=== PATIENT | male | born 1945 | race Caucasian/White ===

== ENCOUNTER 2022-06-26 09:48 | Outpatient (CLI) | payer MEDICARE, SELFPAY ==
--- NOTE | ~2022-06-26 | MR_ITS ---
EXAMINATION: MR lumbar spine wo/w con DATE: 06/26/2022 10:56 INDICATION: Back pain. TECHNIQUE: Magnetic resonance imaging (MRI) of the lumbar spine was performed without and with 15 mL MultiHance intravenous contrast. COMPARISON: None FINDINGS: There is 10 degrees dextroscoliosis of thoracolumbar spine and 7 degrees levocurvature of l umbar spine. There is 3 mm retrolisthesis of L3 on L4. There is hypolordosis of lumbar spine. There a re Schmorl's nodes at most levels. There is severely decreased disc height at L3-L4, mildly decreased disc height at L4-L5, and severely decreased disc height at L5-S1 with endplate remodeling. The dist al spinal cord signal intensity is normal. The conus medullaris is at L1. The following disc levels a re specifically discussed: L1-L2: The disc is bulging. There is moderate bilateral facet joint osteoarthritis. There is mild lef t neural foraminal stenosis. There is mild central canal stenosis. L2-L3: The disc is bulging and has an annular fissure. There is severe bilateral facet joint osteoart hritis. There is mild bilateral neural foraminal stenosis. There is mild central canal stenosis. L3-L4: The disc is bulging and has an annular fissure. There is severe bilateral facet joint osteoart hritis. There is moderate right and mild left neural foraminal stenosis. There is mild central canal stenosis. L4-L5: The disc is bulging and has an annular fissure. There is severe bilateral facet joint osteoart hritis. There is mild right and moderate left neural foraminal stenosis. There is severe central mckayla l stenosis. L5-S1: The disc is bulging and has an annular fissure. There is severe bilateral facet joint osteoart hritis. There is mild left neural foraminal stenosis. There is mild central canal stenosis. IMPRESSION: 1. Severe lumbar spondylosis. 2. Scoliosis. Reviewed, dictated and finalized at location A.
== END 2022-06-26 09:49 | disposition home or self-care (01) ==
PROVIDERS: PCP Internal Medicine; Visit Provider Neurological Surgery
DX: M47.816 Spondylosis without myelopathy or radiculopathy, lumbar region (principal); M41.86 Other forms of scoliosis, lumbar region
CPT/HCPCS: 72158; A9577

== ENCOUNTER 2024-12-17 06:22 | Emergency (ER) | payer MEDICARE, SELFPAY ==
[2024-12-17] VITALS (15 sets, daily range): BP systolic 101–125; BP diastolic 51–60; PULSE 55–66; RESP 13–19; TEMP 36.4–36.6; O2SAT 97–100
--- NOTE | 2024-12-17 06:32 | ECG_ITS ---
Test Date: 2024-12-17 06:48:01 Measurements Intervals [place] Rate: 54 P: 59 AR: 227 QRS: -69 QRSD: 174 T: 47 QT: 465 QTc: 444 Interpretive Statements SINUS BRADYCARDIA WITH FIRST DEGREE AV BLOCK RIGHT BUNDLE BRANCH BLOCK LEFT ANTERIOR FASCICULAR BLOCK CANNOT R/O SEPTAL INFARCT, AGE INDETERMINATE BASELINE ARTIFACT- I, II, III, AVR, AVL, AVF, V1-V6 ABNORMAL ECG No previous ECG available for comparison Electronically Signed On 12-17-2024 06:52:02 CDT by Chadwick Post D.O.
[2024-12-17 06:48] LABS: Basophils Percent Auto 0.2 % (0.2-1.2); Eosinophils Percent Auto 0.5 % (0-4.4); Hematocrit 40.6 % (42.0-52.0); Hemoglobin 13.8 g/dL (14.0-18.0); Immature Granulocyte Absolute 0.02 K/mm3 (0.00-0.031); Immature Granulocyte Percent A 0.4 % (0-0.5); Immature Platelet Fraction Pct 1.8 % (0.9-11.2); Lymphocytes Absolute Auto 0.17 K/mm3 (0.9-3.2); Mean Corpuscular Hemoglobin 32.4 pg (26-34); Mean Corpuscular Volume 95.3 fl (80-100); Mean Platelet Volume 8.7 fl (7.4-10.4); Monocytes Absolute Auto 0.5 K/mm3 (0.1-0.6); Monocytes Percent Auto 9.3 % (2.6-8.5); Neutrophils Absolute Auto 4.9 K/mm3 (1.3-6.7); Neutrophils Percent Auto 86.6 % (45.5-73.1); Platelet Count Result 144 k/mm3 (150-375); Red Blood Count 4.26 M/mm3 (4.6-6.20); Red Cell Distribution Width 13.2 % (11.5-14.5); White Blood Count 5.7 K/mm3 (4.5-10.0)
[2024-12-17 07:02] LABS: Alanine Aminotransferase 21 U/L (6-50); Albumin Level 4.5 g/dL (3.5-5.1); Alkaline Phosphatase 79 U/L (38-126); Anion Gap 8 mmol/L (4-12); Aspartate Amino Transferase 27 U/L (17-59); Bilirubin,Total 0.6 mg/dL (0.2-1.3); Blood Urea Nitrogen 17 mg/dL (9-20); Calcium 8.8 mg/dL (8.4-10.2); Carbon Dioxide 26 mmol/L (22-30); Chloride 92 mmol/L (98-107); Estimated CRCL calculation 61 ml/min; Estimated Glomerular Filt Rate > 60; Glucose 136 mg/dL (65-110); Lipase 92 U/L (23-300); Potassium 4.5 mmol/L (3.4-5.0); Sodium 126 mmol/L (137-145)
[2024-12-17] MEDS: SODIUM CHLORIDE 0.9% IV 1,000 ML 999 ML IV CONT (07:31)
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
--- OUTSIDE RECORDS SUMMARY | 2024-12-17 07:43 | XMS_ITS | Clinical Summary ---
Author Organization [facility] Address [address] [facility] [place] [address] Phone Care Team Providers Care Associate Professor Of Communication Name Role Phone Michael López MD Primary Care Provider [phone] Allergies Active Allergy Reactions Criticality Noted Date Comments Phenytoin Rash Medium 04/16/2010 Phenytoin Sodium Extended Rash Low 01/11/2016 Medications carBAMazepine (CARBATROL) 200 mg Extended Release 12 hour capsule 12/22/2015 Active latanoprost (XALATAN) 0.005 % solution INSTILL 1 DROP IN LEFT AND RIGHT EYE ONCE A DAY 6 05/11/2017 Active Active Problems Problem Noted Date Diagnosed Date S/P colonoscopy with polypectomy 11/14/2016 Overview (06/10/2022): 11/14/16- small polyp removed. 06/2022: 13 mm transverse colon tubular adenoma. Follow up screening colonoscopy 3 year? Family History Medical History Relation Name Comments Skin Cancer Neg Hx Social History Tobacco Use Types Packs/Day Years Used Date Smoking Tobacco: Never Smokeless Tobacco: Never Tobacco Cessation:Counseling Given: Not Answered Alcohol Use Standard Drinks/Week Comments Yes 7 (1 standard drink = 0.6 oz pur e alcohol) Sex and Gender Information Value Date Recorded Sex Assigned at Not on file Legal Sex Male 4:25 AM RIBBON HAND Gender Identity Not on file Sexual Orientation Not on file Last Filed Vital Signs Vital Sign Reading Time Taken Comments Blood Pressure 135/46 06/07/2022 9:09 AM CDT Pulse 50 06/07/2022 9:09 AM CDT Temperature 36.2 C (97.1 F) 06/07/2022 8:55 AM CDT Respiratory Rate 18 06/07/2022 9:09 AM CDT Oxygen Saturation 99% 06/07/2022 9:09 AM CDT Inhaled Oxygen Concentration - - Weight 77.6 kg (171 lb) 06/07/2022 8:11 AM CDT Height 177.8 cm (5' 10 ) 06/07/2022 8:11 AM CDT Body Mass Index 24.54 06/07/2022 8:11 AM CDT Plan of Treatment Health Maintenance Due Date Last Done Comments DTAP/TDAP/TD VACCINES (1 - Tdap) 1965 PNEUMOCOCCAL VACCINE 50+ YEA RS (1 of 1 - PCV) 01/15/1996 ZOSTER VACCINE (1 of 2) 01/15/1996 RSV VACCINE (60+ or ) (1 - 1-dose 75+ series) 2021 INFLUENZA VACCINE (#1) 2024 COLORECTAL SCREENING 06/07/2025 06/07/2022, 06/07/2022, 11/14/2016, Additional history exists Procedures Procedure Name Priority Date/Time Associated Diagnosis Comments COLONOSCOPY REPORT 06/07/2022 9: 04 AM CDT from Last 3 Months or Most Recently Relevant to Health Maintenance Results * COLONOSCOPY REPORT (06/07/2022 9:04 AM CDT) Narrative Procedure Note Keven Jones MD - 06/07/2022 9:02 AM CDT [facility] Endoscopy Patient Name: Camacho Norton Procedure Date: 06/07/2022 Date of : 1945 Attending MD: Keven Jones MD, Procedure: Colonoscopy Indications: Surveillance: Personal history of adenomatous polyps on last colonoscopy November 2016 Providers: Keven Jones MD Referring MD: Michael López MD Medicines: Propofol per Anesthesia Complications: No immediate complications. Procedure: Informed consent was obtained for the procedure, including moderate sedation after risks were discussed. Based on the pre-procedure assessment, including review of the patient's medical history, medications, allergies, and review of systems, the patient was deemed to be an appropriate candidate for sedation. A timeout was performed. Continuous ECG monitoring, pulse oximetry, blood pressure monitoring, and direct observation were performed. The Colonoscope was introduced through the anus and advanced to the terminal ileum, with identification of the appendiceal orifice and IC valve. The colonoscopy was performed without difficulty. The patient tolerated the procedure well. The quality of the bowel preparation was good. Estimated Blood Loss: Estimated blood loss: none. Findings: A 14 mm polyp was found in the transverse colon. The polyp was sessile. The polyp was removed with a cold snare. Resection and retrieval were complete. Multiple small-mouthed diverticula were found from sigmoid to descending colon. Internal hemorrhoids were found during retroflexion. The hemorrhoids were moderate. Impression: - Transverse colon polyp. Resected and retrieved. - Moderate diverticulosis. - Internal hemorrhoids. Recommendation: - Await pathology results. Keven Jones MD 06/07/2022 8:58:30 AM This report has been signed electronically. Number of Addenda: [address]; [place] [address] Keven Jones MD GI PROCEDURE ORDERABLES Final Re sult from Last 3 Months or Most Recently Relevant to Health Maintenance Insurance [facility] [id number] Advance Directives For more information, please contact: [phone] * Full Code (Latest Code Status on File) Date Activated Date Inactivated Comments 11/14/2016 6:31 AM 11/14/2016 10:32 AM Care Teams Associate Professor Of Communication Relationship Specialty Start Date End Date Michael López MD [address] [address] PCP - General Internal Medicine 01/11/16
--- OUTSIDE RECORDS SUMMARY | 2024-12-17 07:43 | XMS_ITS | Clinical Summary ---
Author Organization [facility] Address [facility] [place] [address] Care Team Providers Care Deflash And Wash Operator Name Role Phone Michael López MD Primary Care Provider [phone] Social History Tobacco Use Types Packs/Day Years Used Date Smoking Tobacco: Never Assessed Sex and Gender Information Value Date Recorded Sex Assigned at Not on file Legal Sex Male 2:49 PM CDT Gender Identity Not on file Sexual Orientation Not on file Plan of Treatment Health Maintenance Due Date Last Done Comments Hepatitis C 01/15/1963 Annual Medicare Wellness Visit 2011 Pneumococcal Vaccine: 50+ Years (2 of 2 - PPSV23 or PCV20) 06/21/2017 06/21/2016 RSV Immunization or 60+ Years (1 - 1-dose 75+ series) 2021 DTaP, Tdap and Td Vaccines (2 - Td or Tdap) 03/26/2023 03/26/2013 COVID-19 Vaccine ( season) 2024 06/22/2022, 01/10/2022, 06/22/2021, Additional history exists Zoster Vaccines Completed 09/14/2019, 06/04, 06/11/2016 Meningococcal B Vaccine Aged Out No l onger eligible based on patient's age to complete this topic Meningococcal Vaccine Aged Out No rand mirta eligible based on patient's age to complete this topic RSV Immunizations Under 20 Months Aged Out No longer eligible based on patient's age to complete this topic Insurance A[employer] Care Teams Deflash And Wash Operator Relationship Specialty Start Date End Date Michael López MD PCP - General INTERNAL MEDICINE 11/27/22
--- OUTSIDE RECORDS SUMMARY | 2024-12-17 07:43 | XMS_ITS | Encounter Summary ---
Author Organization [facility] Address [address] [place] [address] Care Team Providers Care Fruit Or Nut Grower Name Role Phone Michael López MD Primary Care Provider [phone] Encounter Details Date Type Department Care Team (Late st Contact Info) Description 10/11/1999 Outpatient Historical [facility] Moe Choi MD Social History Tobacco Use Types Packs/Day Years Used Date Smoking Tobacco: Never Assessed Sex and Gender Information Value Date Recorded Sex Assigned at Not on file Legal Sex Male 4:25 AM MUSIC INDUSTRY INTERNSHIP Gender Identity Not on file Sexual Orientation Not on file documented as of this encounter Plan of Treatment Not on file documented as of this encounter Visit Diagnoses Not on filedocumented in this encounter Care Teams Fruit Or Nut Grower Relationship Specialty Start Date End Date Michael López MD [address] [facility] [address] [place] [phone] PCP - General Internal Medicine 01/11/16 documented as of this encounter
--- OUTSIDE RECORDS SUMMARY | 2024-12-17 07:43 | XMS_ITS | Clinical Summary ---
Author Organization [facility] Address [address] [place] [address] Care Team Providers Care Websphere Process Server Developer Name Role Phone Ayden Menard MD Primary Care Provider [phone] Source Comments [facility],non-owned Affiliates and Associated Physician Practices is amultiple site organization consisting of ambulatory clinics and hospital sitesin [place], [place], [place] and [place]. This disclosure is being madepursuant to the Care Everywhere program and may not contain all information available regarding this patient. Last updated 18.[facility] Allergies Active Allergy Reactions Criticality Noted Date Comments Brimonidine Other Low 02/15/2021 Eye redness and drooping Dorzolamide-Timolol Other Low 11/08/2020 Eye redness and drooping Phenytoin Rash Medium 04/16/2010 Medications * Be aware that medications may not be up to date on this document. Alwaysverify current medications with the patient. latanoprost (XALATAN) 0.005 % ophthalmic solution Instill 1 (one) drop into both eyes at bedtime 9 Active Multiple Vitamins-Minera ls (MULTIVITAMIN MEN 50+ PO) Take by mouth once daily Active sildenafil (Viagra) 100 MG tablet Take 1 (one) tablet by mouth once daily 6 tablet 5 2 Active carBAMazepine ER 12hr (Carbatrol) 200 MG capsuleIndicati ons:Localz-rltd symptomatic epilepsy w cmplx part sz, notintrac, wo status (HCC) TAKE 1 CAPSULE BY MOUTH EVERY 12 HOURS 180 capsule 3 5 Active carBAMazepine ER 12hr (Carbatrol) 200 MG capsuleIndicati ons:Localz-rltd symptomatic epilepsy w cmplx part andrea fernandes wo status (HCC) Take 1 (one) capsule by mouth every 12 hours 180 capsule 3 4 025 Discontinued Active Problems Problem Noted Date Diagnosed Date Arthritis 08/14/2022 Glaucoma 08/14/2022 Hyperlipidemia 08/14/2022 Moderate protein-calorie malnutrition 08/14/2022 Other amnesia 08/14/2022 Spondylosis of lumbar spine 08/14/2022 Seizure disorder 08/14/2022 Overview (08/14/2022): last episode 1977 Allergic conjunctivitis of right eye 02/22/2021 Arthrodesis status 02/10/2021 Refractive error 08/09/2020 Nuclear sclerosis of both eyes 01/12/2020 Overview (08/14/2022): Last Assessment & Plan: Not VS- observe Check BAT in 1 yr Pigmentary glaucoma of left eye, moderate stage 01/12/2020 Overview (08/14/2022): Last Assessment & Plan: intraocular pressure (IOP) acceptable for now Deal visual field (HVF) and OCT stable S/P colonoscopy with polypectomy 11/14/2016 Overview (08/14/2022): 11/14/16- small polyp removed. 06/2022: 13 mm transverse colon tubular adenoma. Follow up screening colonoscopy 3 year? Localz-rltd symptomatic epil epsy w cmplx part andrea fernandes wo status 06/17/2015 Encounters Date Type Department Care Team Description 11/19/2024 Refill [facility] - Neurology [address] [place] [address], [facility] [place] [phone] Priyanka Ramos MD Refill Request 10/24/2024 Refill [facility] - Neurology [address] [facility] [place] [phone] Priyanka Ramos MD Refill Request from Last 3 Months Immunizations Immunization Administration Dates Next Due COVID PFIZER BIVALENT 12Y+ 30mcg/0.3ML 06/22/2022 Covid Pfizer primary Monoval ent 12+ yr 0.3ml 01/10/2022 Covid Pfizer primary monoval ent 12+ yr 0.3mL Purple cap 06/22/2021,11/09/2020,10/11/2020 INFLUENZA VACCINE 06/17/2018, 7,06/14/2016,2014,07/04/2013,06/26/2012 INFLUENZA VACCINE, ADJUVANTE D, QUADR. (FLUAD QUADRIVALENT; 65Y+) (AIIV4) 06/09/2020 INFLUENZA VACCINE, HIGH-DOSE , QUADR. (FLUZONE HIGH-DOSE QUADRIVALENT; 65Y+), 0.7 ML (HD-IIV4) 06/04/2022,06/25/2019 INFLUENZA VACCINE, QUADR. (F LUZONE; FLULAVAL; FLUARIX; AFLURIA QUADRIVALENT; 6MO+), 0.5 ML (IIV4) 05/26/2021 INFLUENZA VACCINE, TRIV. (FL UZONE; FLULAVAL; FLUARIX; AFLURIA TRIVALENT; 6MO+), 0.5 ML (IIV3) 06/14/2016 Pneumococcal Pcv13 Conj 06/21/2016 TDAP, HISTORIC VACCINE 03/26/2013 ZOSTER VACCINE, LIVE 06/12/2016 Zoster Hzv Vacc Recombinant Inj Im 09/14/2019, Social History Tobacco Use Types Packs/Day Years Used Date Smoking Tobacco: Never Smokeless Tobacco: Never Tobacco Cessation:Counseling Given: Not Answered Alcohol Use Standard Drinks/Week Comments Not Asked 0 (1 standard drink = 0.6 oz pur e alcohol) PHQ-2 Answer Date Recorded PHQ2 TOTAL SCORE 0 07/14/2022 Sex and Gender Information Value Date Recorded Sex Assigned at Not on file Legal Sex Male 5:25 PM MANAGEMENT ACCOUNTANT Gender Identity Not on file Sexual Orientation Not on file Last Filed Vital Signs Vital Sign Reading Time Taken Comments Blood Pressure 160/85 07/15/2024 9:49 AM MANAGEMENT ACCOUNTANT Pulse 72 07/15/2024 9:49 AM MANAGEMENT ACCOUNTANT Temperature 36.7 C (98 F) 08/14/2022 3:14 PM MANAGEMENT ACCOUNTANT Respiratory Rate 16 07/14/2022 1:11 PM MANAGEMENT ACCOUNTANT Oxygen Saturation 93% 08/14/2022 3:14 PM MANAGEMENT ACCOUNTANT Inhaled Oxygen Concentration - - Weight 78 kg (172 lb) 07/15/2024 9:49 AM MANAGEMENT ACCOUNTANT Height 180.3 cm (5' 11 ) 08/14/2022 3:14 PM MANAGEMENT ACCOUNTANT Body Mass Index 23.99 08/14/2022 3:14 PM MANAGEMENT ACCOUNTANT Plan of Treatment Upcoming Encounters Date Type Department Care Team (Late st Contact Info) Description 07/14/2025 10:30 AM MANAGEMENT ACCOUNTANT Office Visit [facility] - Neurology [address] [place] [address], [place] [address] Priyanka Ramos MD [address] [place] [address] [place] [address] Health Maintenance Due Date Last Done Comments HEPATITIS C SCREENING 01/10/1963 PNEUMOCOCCAL VACCINE 50+ (2 of 2 - PPSV23) 06/21/2017 06/21/2016 Respiratory Syncytial Virus (RSV) Vaccine Pt: or over 60 yrs (1 - 1-dose 75+ series) 2021 DTAP/TDAP/TD VACCINES (2 - Td or Tdap) 03/26/2023 03/26/2013 COVID-19 VACCINE ( season) 2024 06/22/2022, 01/10/2022, 06/22/2021, Additional history exists DEPRESSION SCREENING 09/03/2024 07/14/2022 MEDICARE AWV CALENDAR YEAR 2024 INFLUENZA VACCINE (Season Ended) 2025 06/04/2022, 05/26/2021, 06/09/2020, Additional history exists ZOSTER VACCINE Completed 09/14/2019, 06/04, 06/12/2016 HEPATITIS B VACCINE Aged Out No longe r eligible based on patient's age to complete this topic HIB VACCINE Aged Out No longer eligi ble based on patient's age to complete this topic HPV VACCINE Aged Out No longer eligi ble based on patient's age to complete this topic MENINGOCOCCAL (Group B) VACCINE SHARED DECISION-MAKING Aged Out No longer eligible based on patient's age to complete this topic MENINGOCOCCAL GROUPS A/C/Y/W VACCINE Aged Out No longer eligible based on patient's age to complete this topic Insurance [facility] MEDICARE ADV Care Teams Websphere Process Server Developer Relationship Specialty Start Date End Date Ayden Menard MD [address] [facility] [address] [place] [address] PCP - General Internal Medicine 07/10/24
--- OUTSIDE RECORDS SUMMARY | 2024-12-17 07:43 | XMS_ITS | Referral Summary ---
Author Organization [facility] Address [address] [place] [address] Care Team Providers Care Pantry Chef Name Role Phone Pawel Ortiz MD Unavailable [phone] Ayden Menard MD Primary Care Provider [phone] Encounters Date Type Department Care Team Description 12/10/2024 9:20 AM CDT Imaging Exam [facility] Ophthalmology [address] [place] [address] [place] [phone] 12/10/2024 9:00 AM CDT Imaging Exam [facility] Ophthalmology [address] [place] [phone] 12/10/2024 7:45 AM CDT Office Visit [facility] Ophthalmology [address] [place] [phone] Claire Hernández MD Pigmentary glaucoma of left eye, moderate stage (Primary Dx); Pigmentary glaucoma of right eye, severe stage; Srnvm (subretinal neovascularization), right from Last 3 Months Allergies Active Allergy Reactions Criticality Noted Date [...] Quintero/Joselito. Assessment & Plan (08/15/2023 12:59 PM PIT SHOVEL OPERATOR): POM 1 status post (s/p) cataract extraction (CE)/intraocular lens (IOL)/KDB left eye Poor dilation with IFIS, no hx alpha derrell use, c/b early steroid response at POW1 Intraocular pressure (IOP) improved off steroid- acceptable Continue latanoprost both eyes (OU) Assessment & Plan (07/25/2023 10:12 AM PIT SHOVEL OPERATOR): POW 1 status post (s/p) cataract extraction (CE)/intraocular lens (IOL)/KDB left eye Poor dilation with IFIS, no hx alpha derrell use Intraocular pressure (IOP) elevated today- ? Steroid response DC Oflox Taper off pred forte (PF) rapidly 3-2-1 x 3 days Continue latanoprost both eyes (OU) F/U 1 wks/prn Assessment & Plan (07/18/2023 10:38 AM PIT SHOVEL OPERATOR): POD 1 status post (s/p) cataract extraction [...] pressure (IOP) mid-high teens on single med Dela visual field (HVF) and OCT has been [...] proceed Assessment & Plan (08/15/2023 1:00 PM PIT SHOVEL OPERATOR): Tmax 28, intraocular pressure (IOP) remains mid [...] OCT Assessment & Plan (11/08/2020 10:58 AM PIT SHOVEL OPERATOR): With Tmax of 19, progression of Deal visual field (HVF)- intraocular pressure (IOP) of 15 > target Intolerant of Cosopt and Timolol Trial of brimondine right eye (OD) bid F/U 4-6 wks Assessment & Plan (07/12/2020 9:42 AM PIT SHOVEL OPERATOR): intraocular pressure (IOP) acceptable CPM F/U as [...] now Assessment & Plan (11/08/2020 10:58 AM PIT SHOVEL OPERATOR): intraocular pressure (IOP) acceptable for now Stable Deal visual field (HVF) and OCT Assessment & Plan (07/12/2020 9:43 AM PIT SHOVEL OPERATOR): intraocular pressure (IOP) remains acceptable status post [...] dilation Assessment & Plan (08/15/2023 1:00 PM PIT SHOVEL OPERATOR): Desires cataract extraction (CE) after trip to [place] Will return in Spring- check MRX left [...] observe Assessment & Plan (11/08/2020 10:58 AM PIT SHOVEL OPERATOR): Not VS- observe Assessment & Plan (07/12/2020 9:43 AM PIT SHOVEL OPERATOR): Not VS- observe To obtain MRx elsewhere Social History Tobacco Use Types Packs/Day Years [...] on file Legal Sex Male 9:57 AM PIT SHOVEL OPERATOR Gender Identity Not on file Sexual Orientation [...] 12/25/2023 2:50 PM CDT Plan of Treatment Not on file Medical Devices Implanted Type Area Mother Helper Device Identifier Shelf Expiration Date Model / Serial / Lot [employer] Lens Iol Tecnis Smplcty 1-Pc Clr [place] 14.5 Diopter [id number] - [id number] - [id number] Implanted:Qty: 1 on 07/17/2023 by Claire Hernández MD at [facility] L[facility] Left: Eye [employer] [id number] 04/07/2026 [id number] / [id number] / 0 [employer] Lens Tecnis Eyhance Iol [id number] - [id number] - [id number] Implanted:Qty: 1 on 01/01/2024 by Claire Hernández MD at [facility] Right: Lens [employer] [id number] 08/08/2026 [id number] / [id number] / 0 Procedures Procedure Name Priority Date/Time [...] right eye (OD) with retinal fluid Result [facility] Claire Hernández MD OPHTH TOMOGRAPHY Final R [...] membrane. Macular thickness was 441 mircometers. Result [facility] Claire Hernández MD OPHTH TOMOGRAPHY Final R [...] scarring off disc right eye (OD) Result [facility] Claire Hernández MD OPHTH PHOTOGRAPHY Final Result from Last 3 Months Insurance [employer] MEDICARE AET MEDICARE Care Teams Pantry Chef Relationship Specialty Start Date End Date Ayden Menard MD [address] [address] [address] [place] [address] PCP - General Internal Medicine 12/05/23 Pawel Ortiz MD [address] [place] [address] [place] [address] Referring Physician Ophthalmology 07/16/19
--- OUTSIDE RECORDS SUMMARY | 2024-12-17 07:43 | XMS_ITS | Encounter Summary ---
Author Organization [facility] Address [address] [place] [address] Care Team Providers Care Library Technician Name Role Phone Michael López MD Primary Care Provider [phone] Encounter Details Date Type Department Care Team (Late st Contact Info) Description 11/08/1999 Outpatient Historical [facility] Moe Choi MD Social History Tobacco Use Types Packs/Day Years Used Date Smoking Tobacco: Never Assessed Sex and Gender Information Value Date Recorded Sex Assigned at Not on file Legal Sex Male 4:25 AM FLATBED STITCHER Gender Identity Not on file Sexual Orientation Not on file documented as of this encounter Plan of Treatment Not on file documented as of this encounter Visit Diagnoses Not on filedocumented in this encounter Care Teams Library Technician Relationship Specialty Start Date End Date Michael López MD [address] [facility] [address] [place] [phone] PCP - General Internal Medicine 01/11/16 documented as of this encounter
[2024-12-17 09:26] LABS: Add Urine Microscopic? YES; Appearance Urine Cloudy (Clear); Bacteria Urine None Seen /hpf; Bilirubin Urine Negative (Negative); Blood Urine Negative (Negative); Color Urine Yellow (Yellow); Glucose Urine UA Negative (Negative); Ketones Urine Trace mg/dL (Negative); Leukocyte Esterase Ur Negative LEU/UL (Negative); Nitrate Urine Negative (Negative); Non Pathogenic Casts 0-2; Protein Urine 1+ mg/dL (Negative); Specific Grav Ur 1.019 (1.001-1.035); Squamous Epithelial Cell Urine None Seen /hpf (Few); Urobilinogen Urine 0.2 mg/dL (<2.0); WBC Urine 0-5 /hpf (0-3); pH Urine 7.5 (5.0-9.0)
--- NOTE | 2024-12-17 10:13 | PC.NURSE ---
tolerated water. Repeat labs complete
[2024-12-17 10:26] LABS: Anion Gap 4 mmol/L (4-12); Blood Urea Nitrogen 15 mg/dL (9-20); Calcium 8.1 mg/dL (8.4-10.2); Carbon Dioxide 25 mmol/L (22-30); Chloride 96 mmol/L (98-107); Estimated CRCL calculation 72 ml/min; Estimated Glomerular Filt Rate > 60; Glucose 113 mg/dL (65-110); Potassium 4.5 mmol/L (3.4-5.0); Sodium 125 mmol/L (137-145)
--- NOTE | 2024-12-17 11:03 | ED.GENADULT ---
HPI - General Adult General Chief complaint: Nausea/Vomiting/Diarrhea Stated complaint: diarrhea & syncopal Time Seen by Provider: 12/17/24 07:14 History of Present Illness HPI narrative: Patient is a 79-year-old gentleman who presents emergency department with chief complaint of diarrhea. Patient reports that he had multiple bouts of diarrhea felt lightheaded and his blood pressure was low the patient reports that he feels very dehydrated the patient reports that he has prior history of hyponatremia. Related Data Home Medications ?Medication ?Instructions ?Recorded ?Confirmed ?Last Taken ?Type carbamazepine 200 mg tablet 200 mg PO Q12H 06/02/22 08/08/22 Unknown History latanoprost (PF) 0.005 % eye drops 1 drp EACH EYE QPM 06/02/22 08/08/22 Unknown History multivitamin 1 tablet PO DAILY 06/02/22 08/08/22 Unknown History sildenafil 100 mg tablet 100 mg PO DAILY PRN 06/02/22 08/08/22 Unknown History Allergies Allergy/AdvReac Type Severity Reaction Status Date / Time phenytoin (From Dilantin) Allergy Unknown Rash Verified 08/08/22 09:07 Review of Systems Review of Systems: A 10 system review of systems was completed on the patient and is negative except for what is stated in the HPI. Nursing and ancillary documentation was reviewed. PMFSH Past Medical History Medical History Memory loss RBBB (right bundle branch block) Arthritis Moderate protein-energy malnutrition Right leg pain Lumbar spondylolysis Irregular heartbeat Seizure disorder Other amnesia Unspecified glaucoma Hyperlipidemia, unspecified Surgical History Surgical History H/O colonoscopy History of appendectomy Status post glaucoma surgery Family History Family History Other Heart disease Hypertension Social History Social History Smoking status: Never smoker Alcohol intake: current Substance use: never Substance use type: does not use Exam Narrative: GENERAL: Well-appearing, well-nourished, and in no acute distress. HEAD: Normocephalic, atraumatic. EYES: PERRLA and EOMI. ENT: Nares clear, no rhinorrhea or epistaxis. Mucous membranes moist. NECK: Supple. CHEST: Clear to auscultation. No respiratory distress. HEART: Regular rate and rhythm. No murmur heard. Normal peripheral pulses. ABDOMEN: Soft, nontender, nondistended, normal active bowel sounds. EXTREMITIES: Normal range of motion. No edema. SKIN: Warm, dry, no rash. NEURO: No focal deficits. Alert and oriented x3. PSYCH: Normal mood and affect. Course Course Emergency Course: Differential diagnosis includes dehydration, gastroenteritis, viral illness Laboratory studies showed a sodium of 126 repeat was 125 after receiving IV fluids. The patient is feeling much better at this time and reports that he is able tolerate p.o. intake reports that he does have chronic hyponatremia the patient would like to go home at this point and continue oral hydration at home. Vital Signs Vital signs: Vital Signs Temperature 36.6 C 12/17/24 06:21 Pulse Rate 57 L 12/17/24 06:21 Respiratory Rate 17 12/17/24 06:21 Blood Pressure 113/52 L 12/17/24 06:21 Pulse Oximetry 98 12/17/24 06:21 Oxygen Delivery Room Air 12/17/24 06:21 Temperature 36.5 C 12/17/24 09:32 Pulse Rate 66 12/17/24 09:46 Respiratory Rate 18 12/17/24 09:46 Blood Pressure 111/52 L 12/17/24 09:46 Pulse Oximetry 97 12/17/24 09:32 Oxygen Delivery Room Air 12/17/24 06:21 Medical Decision Making Vital Signs Vital Signs: Vital Signs Temperature 36.6 C 12/17/24 06:21 Pulse Rate 57 L 12/17/24 06:21 Respiratory Rate 17 12/17/24 06:21 Blood Pressure 113/52 L 12/17/24 06:21 Pulse Oximetry 98 12/17/24 06:21 Oxygen Delivery Room Air 12/17/24 06:21 Temperature 36.5 C 12/17/24 09:32 Pulse Rate 66 12/17/24 09:46 Respiratory Rate 18 12/17/24 09:46 Blood Pressure 111/52 L 12/17/24 09:46 Pulse Oximetry 97 12/17/24 09:32 Oxygen Delivery Room Air 12/17/24 06:21 Lab Data 12/17/24 06:38 12/17/24 10:12 Labs: Lab Results 12/17/24 12/17/24 12/17/24 Range/Units 06:38 08:59 10:12 WBC 5.7 (4.5-10.0) K/mm3 RBC 4.26 L (4.6-6.20) M/mm3 Hgb 13.8 L (14.0-18.0) g/dL Hct 40.6 L (42.0-52.0) % MCV 95.3 (80-100) fl MCH 32.4 (26-34) pg MCHC 34.0 (32-36) g/dl RDW 13.2 (11.5-14.5) % Plt Count 144 L (150-375) k/mm3 MPV 8.7 (7.4-10.4) fl Immature Gran % (Auto) 0.4 (0-0.5) % Neut % (Auto) 86.6 H (45.5-73.1) % Lymph % (Auto) 3.0 L (18.3-44.2) % [place] % (Auto) 9.3 H (2.6-8.5) % Eos % (Auto) 0.5 (0-4.4) % Baso % (Auto) 0.2 (0.2-1.2) % Lymph # (Auto) 0.17 L (0.9-3.2) K/mm3 [place] # (Auto) 0.5 (0.1-0.6) K/mm3 Eos # (Auto) 0.0 (0-0.3) K/mm3 Baso # (Auto) 0.0 (0.0-0.1) K/mm3 Abs Immat Gran (auto) 0.02 (0.00-0.031) K/mm3 Absolute Neuts (auto) 4.9 (1.3-6.7) K/mm3 Absolute Nucleated RBC 0.000 (0.0-0.012) K/mm3 Nucleated RBC % 0.0 (0.0-0.2) % % Immature Plt Fraction 1.8 (0.9-11.2) % Sodium 126 L 125 L (137-145) mmol/L Potassium 4.5 4.5 (3.4-5.0) mmol/L Chloride 92 L 96 L (98-107) mmol/L Carbon Dioxide 26 25 (22-30) mmol/L Anion Gap 8 4 (4-12) mmol/L BUN 17 15 (9-20) mg/dL Creatinine 0.90 0.76 (0.7-1.3) mg/dL Estim Creat Clear Calc 61 72 ml/min Estimated GFR > 60 > 60 (59 - ) Glucose 136 H 113 H (65-110) mg/dL Calcium 8.8 8.1 L (8.4-10.2) mg/dL Magnesium 2.0 (1.6-2.3) mg/dL Total Bilirubin 0.6 (0.2-1.3) mg/dL AST 27 (17-59) U/L ALT 21 (6-50) U/L Alkaline Phosphatase 79 (38-126) U/L Total Protein 7.0 (6.3-8.2) g/dL Albumin 4.5 (3.5-5.1) g/dL Lipase 92 (23-300) U/L Urine Color Yellow (Yellow) Urine Appearance Cloudy H (Clear) Urine pH 7.5 (5.0-9.0) Ur Specific [place] 1.019 (1.001-1.035) Urine Protein 1+ H (Negative) mg/dL Urine Glucose (UA) Negative (Negative) mg/dL Urine Ketones Trace H (Negative) mg/dL Ur Blood (Man) Negative (Negative) Urine Nitrate Negative (Negative) Urine Bilirubin Negative (Negative) Urine Urobilinogen 0.2 (<2.0) mg/dL Leukocyte Esterase Rfl Negative (Negative) MILAGROS/UL Urine RBC 3-5 H (0-2) /hpf Urine WBC 0-5 (0-3) /hpf Ur Squamous Epith Cells None seen (Few) /hpf Urine Bacteria None seen /hpf Urine Casts 0-2 Discharge Plan Discharge Clinical Impression: Diarrhea, Dehydration Patient Disposition: Home Condition: Stable Instructions: Antibiotic Form, Dehydration (ED), Acute Diarrhea (ED) Patient Language: Portuguese Prescriptions: New ondansetron 4 mg tablet,disintegrating 4 mg PO Q8H PRN (Reason: nausea and vomiting) Qty: 20 0RF No Action carbamazepine 200 mg tablet 200 mg PO Q12H latanoprost (PF) 0.005 % drops 1 drp EACH EYE QPM sildenafil 100 mg tablet 100 mg PO DAILY PRN Rx Instructions: administer 30 minutes to 4 hours before activity multivitamin Tablet 1 tablet PO DAILY Follow-up/Referrals: Rene,Michael Ramirez MD [Primary Care Provider] - Time of Disposition: 11:08
== END 2024-12-17 11:33 | disposition home or self-care (01) ==
PROVIDERS: Emergency Medicine; Emergency Provider Emergency Medicine; PCP Internal Medicine
DX: R19.7 Diarrhea, unspecified (principal); E86.0 Dehydration; M19.90 Unspecified osteoarthritis, unspecified site; M47.816 Spondylosis without myelopathy or radiculopathy, lumbar region; G40.909 Epilepsy, unspecified, not intractable, without status epilepticus; E78.5 Hyperlipidemia, unspecified
CPT/HCPCS: 36415; 80048; 80053; 81001; 83690; 83735; 85025; 85055; 93005; 96360; 99283; J7030

== ENCOUNTER 2024-12-24 12:55 | Outpatient (CLI) | payer MEDICARE, SELFPAY ==
--- OUTSIDE RECORDS SUMMARY | 2024-12-24 14:27 | XMS_ITS | Referral Summary ---
Author Organization [facility] Address [address] [place] [address] Care Team Providers Care Baggageman Name Role Phone Pawel Ortiz MD Unavailable [phone] Ayden Menard MD Primary Care Provider [phone] Encounters Date Type Department Care Team Description 12/10/2024 9:20 AM CDT Imaging Exam [facility] Ophthalmology [address] [place] [address] [place] [phone] 12/10/2024 9:00 AM CDT Imaging Exam [facility] Ophthalmology [address] [place] [phone] 12/10/2024 7:45 AM CDT Office Visit [facility] Ophthalmology [address] [place] [phone] Claire Hernández MD Pigmentary glaucoma of left [...] Quintero/Joselito. Assessment & Plan (08/15/2023 12:59 PM SUPERVISOR GAME FARM): POM 1 status post (s/p) cataract extraction (CE)/intraocular lens (IOL)/KDB left eye Poor dilation with IFIS, no hx alpha derrell use, c/b early steroid response at [facility] Intraocular pressure (IOP) improved off steroid- acceptable Continue latanoprost both eyes (OU) Assessment & Plan (07/25/2023 10:12 AM SUPERVISOR GAME FARM): POW 1 status post (s/p) cataract extraction (CE)/intraocular lens (IOL)/KDB left eye Poor dilation with IFIS, no hx alpha derrell use Intraocular pressure (IOP) elevated today- ? Steroid response DC Oflox Taper off pred forte (PF) rapidly 3-2-1 x 3 days Continue latanoprost both eyes (OU) F/U 1 wks/prn Assessment & Plan (07/18/2023 10:38 AM SUPERVISOR GAME FARM): POD 1 status post (s/p) cataract extraction [...] proceed Assessment & Plan (08/15/2023 1:00 PM SUPERVISOR GAME FARM): Tmax 28, intraocular pressure (IOP) remains mid [...] OCT Assessment & Plan (11/08/2020 10:58 AM SUPERVISOR GAME FARM): With Tmax of 19, progression of Deal visual field (HVF)- intraocular pressure (IOP) of 15 > target Intolerant of Cosopt and Timolol Trial of brimondine right eye (OD) bid F/U 4-6 wks Assessment & Plan (07/12/2020 9:42 AM SUPERVISOR GAME FARM): intraocular pressure (IOP) acceptable CPM F/U as [...] now Assessment & Plan (11/08/2020 10:58 AM SUPERVISOR GAME FARM): intraocular pressure (IOP) acceptable for now Stable Deal visual field (HVF) and OCT Assessment & Plan (07/12/2020 9:43 AM SUPERVISOR GAME FARM): intraocular pressure (IOP) remains acceptable status post [...] dilation Assessment & Plan (08/15/2023 1:00 PM SUPERVISOR GAME FARM): Desires cataract extraction (CE) after trip to [place] Will return in Spring- check MRX left [...] observe Assessment & Plan (11/08/2020 10:58 AM SUPERVISOR GAME FARM): Not VS- observe Assessment & Plan (07/12/2020 9:43 AM SUPERVISOR GAME FARM): Not VS- observe To obtain MRx elsewhere [...] on file Legal Sex Male 9:57 AM SUPERVISOR GAME FARM Gender Identity Not on file Sexual Orientation [...] on file Medical Devices Implanted Type Area Bottoming Room Inspector Device Identifier Shelf Expiration Date Model / Serial / Lot [employer] Lens Iol Tecnis Smplcty 1-Pc Clr [place] 14.5 Diopter [id number] - [id number] - [id number] Implanted:Qty: 1 on 07/17/2023 by Claire Hernández MD at [facility] Lens Left: Eye [employer] [id number] 04/07/2026 [id number] / [id number] / 0 [employer] Lens Tecnis Eyhance Iol [id number] - [id number] - [id number] Implanted:Qty: 1 on 01/01/2024 by Claire Hernández MD at [facility] Lens Right: Lens [employer] [id number] 08/08/2026 [id number] / [id number] / 0 Procedures Procedure Name Priority Date/Time [...] right eye (OD) with retinal fluid Result [facility] Claire Hernández MD OPHTH TOMOGRAPHY Final R [...] membrane. Macular thickness was 441 mircometers. Result [facility] Claire Hernández MD OPHTH TOMOGRAPHY Final R [...] scarring off disc right eye (OD) Result [facility] Claire Hernández MD OPHTH PHOTOGRAPHY Final Result from Last 3 Months Insurance AETNA MEDICARE AET MEDICARE Care Teams Baggageman Relationship Specialty Start Date End Date Ayden Menard MD [address] [place] [address] [address] [place] [address] PCP - General Internal Medicine 12/05/23 Pawel Ortiz MD [address] [place] [address] [place] [address] Referring Physician Ophthalmology 07/16/19
--- OUTSIDE RECORDS SUMMARY | 2024-12-24 14:27 | XMS_ITS | Encounter Summary ---
Author Organization [facility] Address 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
--- OUTSIDE RECORDS SUMMARY | 2024-12-24 14:27 | XMS_ITS | Clinical Summary ---
Author Organization [facility] Address [address] [place] [phone] Care Team Providers Care Tax Intern Name Role Phone Pawel Ortiz MD Unavailable [phone] Ayden Menadr MD Primary Care Provider [phone] Allergies Active Allergy Reactions Criticality Noted Date [...] Quintero/Joselito. Assessment & Plan (08/15/2023 12:59 PM OBGYN SPECIALIST): POM 1 status post (s/p) cataract extraction (CE)/intraocular lens (IOL)/KDB left eye Poor dilation with IFIS, no hx alpha derrell use, c/b early steroid response at [facility] Intraocular pressure (IOP) improved off steroid- acceptable Continue latanoprost both eyes (OU) Assessment & Plan (07/25/2023 10:12 AM OBGYN SPECIALIST): POW 1 status post (s/p) cataract extraction (CE)/intraocular lens (IOL)/KDB left eye Poor dilation with IFIS, no hx alpha derrell use Intraocular pressure (IOP) elevated today- ? Steroid response DC Oflox Taper off pred forte (PF) rapidly 3-2-1 x 3 days Continue latanoprost both eyes (OU) F/U 1 wks/prn Assessment & Plan (07/18/2023 10:38 AM OBGYN SPECIALIST): POD 1 status post (s/p) cataract extraction [...] proceed Assessment & Plan (08/15/2023 1:00 PM OBGYN SPECIALIST): Tmax 28, intraocular pressure (IOP) remains mid [...] OCT Assessment & Plan (11/08/2020 10:58 AM OBGYN SPECIALIST): With Tmax of 19, progression of Deal visual field (HVF)- intraocular pressure (IOP) of 15 > target Intolerant of Cosopt and Timolol Trial of brimondine right eye (OD) bid F/U 4-6 wks Assessment & Plan (07/12/2020 9:42 AM OBGYN SPECIALIST): intraocular pressure (IOP) acceptable CPM F/U as [...] now Assessment & Plan (11/08/2020 10:58 AM OBGYN SPECIALIST): intraocular pressure (IOP) acceptable for now Stable Deal visual field (HVF) and OCT Assessment & Plan (07/12/2020 9:43 AM OBGYN SPECIALIST): intraocular pressure (IOP) remains acceptable status post [...] dilation Assessment & Plan (08/15/2023 1:00 PM OBGYN SPECIALIST): Desires cataract extraction (CE) after trip to [place] Will return in Spring- check MRX left [...] observe Assessment & Plan (11/08/2020 10:58 AM OBGYN SPECIALIST): Not VS- observe Assessment & Plan (07/12/2020 9:43 AM OBGYN SPECIALIST): Not VS- observe To obtain MRx elsewhere Encounters Date Type Department Care Team Description 12/10/2024 9:20 AM CDT Imaging Exam [facility] Ophthalmology [address] [place] [phone] 12/10/2024 9:00 AM CDT Imaging Exam [facility] Ophthalmology [address] [place] [phone] 12/10/2024 7:45 AM CDT Office Visit [facility] Ophthalmology [address] [place] [phone] Claire Hernández MD Pigmentary glaucoma of left [...] on file Legal Sex Male 9:57 AM OBGYN SPECIALIST Gender Identity Not on file Sexual Orientation [...] 06/04, 06/12/2016 Medical Devices Implanted Type Area Keller Machine Operator Device Identifier Shelf Expiration Date Model / Serial / Lot [employer] Lens Iol Tecnis Smplcty 1-Pc Clr [place] 14.5 Diopter [id number] - [id number] - [id number] Implanted:Qty: 1 on 07/17/2023 by Claire Hernández MD at [facility] Lens Left: Eye [employer] [id number] 04/07/2026 [id number] / [id number] / 0 [place] [employer] Lens Tecnis Eyhance Iol [id number] - [id number] - [id number] Implanted:Qty: 1 on 01/01/2024 by Claire Hernández MD at [facility] Lens Right: Lens [employer] [id number] 08/08/2026 [id number] / [id number] / 0 Procedures Procedure Name Priority Date/Time [...] right eye (OD) with retinal fluid Result [facility] Claire Hernández MD OPHTH TOMOGRAPHY Final [...] membrane. Macular thickness was 441 mircometers. Result [facility] Claire Hernández MD OPHTH TOMOGRAPHY Final [...] scarring off disc right eye (OD) Result [facility] Claire Hernández MD OPHTH PHOTOGRAPHY Final Result from Last 3 Months Insurance AETNA MEDICARE [facility] MEDIC[facility] Address: [facility] [id number] [place] [id number] AETNA MEDICARE [facility] MEDICARE Address: [facility] [id number] [place] [address] Care Teams Tax Intern Relationship Specialty Start Date End Date Ayden Menard MD [facility] [address] [facility] [address] [place] [address] PCP - General Internal Medicine 12/05/23 Pawel Ortiz MD [address] [facility] [place] [address] Referring Physician Ophthalmology 07/16/19
--- OUTSIDE RECORDS SUMMARY | 2024-12-24 14:27 | XMS_ITS | Clinical Summary ---
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; [place] [address] Keven Jones MD GI PROCEDURE ORDERABLES Final Re sult from Last 3 Months or Most Recently Relevant to Health Maintenance Insurance [facility] [id number] Advance Directives For more information, please contact: [phone] * Full Code (Latest Code Status on File) Date Activated Date Inactivated Comments 11/14/2016 6:31 AM 11/14/2016 10:32 AM Care Teams Caser Relationship Specialty Start Date End Date Michael López MD [address] [phone] PCP - General Internal Medicine 01/11/16
--- OUTSIDE RECORDS SUMMARY | 2024-12-24 14:27 | XMS_ITS | Clinical Summary ---
Author Organization [facility] Address Replaced by [facility] [place] [address] Care Team Providers Care Telecommunication Tower Technician Name Role Phone Michael López MD Primary Care Provider [phone] Social History Tobacco Use Types Packs/Day Years [...] Vaccine: 50+ Years (2 of 2 - PPSV23) 06/21/2017 06/21/2016 RSV Immunization or 60+ Years (1 - 1-dose 75+ series) 2021 DTaP, Tdap and Td Vaccines (2 - Td or Tdap) 03/26/2023 03/26/2013 COVID-19 Vaccine (2023- season) 2024 06/22/2022, 01/10/2022, 06/22/2021, Additional history [...] complete this topic Insurance AETNA Care Teams Telecommunication Tower Technician Relationship Specialty Start Date End Date Michael López MD PCP - General INTERNAL MEDICINE 11/27/22
--- OUTSIDE RECORDS SUMMARY | 2024-12-24 14:27 | XMS_ITS | Clinical Summary ---
Author Organization [facility] Address [address] [place] [address] Care Team Providers Care Card Player Name Role Phone Ayden Mneard MD Primary Care Provider [phone] Source Comments [facility],non-owned Affiliates and Associated Physician Practices is amultiple site organization consisting of ambulatory clinics and hospital sitesin [place], [place], [place] and [place]. This disclosure is being madepursuant to the Care Everywhere program and may not contain all information available regarding this patient. Last updated 18.[facility] Allergies Active Allergy Reactions Criticality Noted Date [...] (one) drop into both eyes at bedtime 10/31/2018 Active Multiple Vitamins-Mineral s (MULTIVITAMIN MEN 50+ PO) Take by mouth once daily Active sildenafil (Viagra) 100 MG tablet Take 1 (one) tablet by mouth once daily 6 tablet 5 07/14/2022 Active carBAMazepine ER 12hr (Carbatrol) 200 MG capsuleIndicatio ns:Localz-rltd symptomatic epilepsy w cmplx part sz, notintrac, wo status (HCC) TAKE 1 CAPSULE BY MOUTH EVERY 12 HOURS 180 capsule 3 11/22/2024 Active Active Problems Problem Noted Date Diagnosed [...] Plan: intraocular pressure (IOP) acceptable for now Dela visual field (HVF) and OCT stable S/P colonoscopy with polypectomy 11/14/2016 Overview (08/14/2022): 11/14/16- small polyp removed. 06/2022: 13 mm transverse colon tubular adenoma. Follow up screening colonoscopy 3 year? Localz-rltd symptomatic epil epsy w cmplx part sz, notintrac, wo status 06/17/2015 Encounters Date Type Department Care Team Description 11/19/2024 Refill [facility] - Neurology [address] [place] [address] [place] [address] Priyanka Ramos MD Refill Request 10/24/2024 Refill [facility] - Neurology [address] [place] [address] [place] [address] Priyanka Ramos MD Refill Request from Last [...] on file Legal Sex Male 5:25 PM PHYSICIAN ADVISOR Gender Identity Not on file Sexual Orientation Not on file Last Filed Vital Signs Vital Sign Reading Time Taken Comments Blood Pressure 160/85 07/15/2024 9:49 AM PHYSICIAN ADVISOR Pulse 72 07/15/2024 9:49 AM PHYSICIAN ADVISOR Temperature 36.7 C (98 F) 08/14/2022 3:14 PM PHYSICIAN ADVISOR Respiratory Rate 16 07/14/2022 1:11 PM PHYSICIAN ADVISOR Oxygen Saturation 93% 08/14/2022 3:14 PM PHYSICIAN ADVISOR Inhaled Oxygen Concentration - - Weight 78 kg (172 lb) 07/15/2024 9:49 AM PHYSICIAN ADVISOR Height 180.3 cm (5' 11 ) 08/14/2022 3:14 PM PHYSICIAN ADVISOR Body Mass Index 23.99 08/14/2022 3:14 PM PHYSICIAN ADVISOR Plan of Treatment Upcoming Encounters Date Type Department Care Team (Late st Contact Info) Description 07/14/2025 10:30 AM PHYSICIAN ADVISOR Office Visit [facility] - Neurology [address] [place] [address], [place] [phone] Priyanka Ramos MD [address] [place] [address] [place] [address] Health Maintenance Due Date Last [...] patient's age to complete [place] [id number] Care Teams Card Player Relationship Specialty Start Date End Date Ayden Menard MD [address] [facility] [address] [place] [address] PCP - General Internal Medicine 07/10/24
--- OUTSIDE RECORDS SUMMARY | 2024-12-24 14:27 | XMS_ITS | Encounter Summary ---
Author Organization [facility] Address 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
== END 2024-12-24 12:56 | disposition home or self-care (01) ==
LOC: ANHAUDASC 12:56
DX: Z01.10 Encounter for examination of ears and hearing without abnormal findings (principal); H90.3 Sensorineural hearing loss, bilateral; T16.2XXA Foreign body in left ear, initial encounter; H93.11 Tinnitus, right ear; R42 Dizziness and giddiness
CPT/HCPCS: 92557; 92567